=== PATIENT | female | born 1935 | race Caucasian/White ===

== ENCOUNTER 2020-11-20 13:56 | Inpatient (IN) | payer MEDICARE, MEDICAID ==
[~2020-11-20] VITALS: Ht 160 cm; Wt 71.9 kg
[2020-11-20] MEDS ORDERED: ASPIRIN 81MG TABLET PO ONE ×2 (14:15→15:45)
[2020-11-20] MEDS ORDERED: NITROGLYCERIN 0.4MG TABLET SL SL PRN ×2 (14:15→21:30)
[2020-11-20 15:22] LABS: CHLORIDE 111 mEq/L (98-107)
[2020-11-20 15:33] LABS: BASOPHILS % 0.8 % (0.0-2.0); EOSINOPHILS % 1.3 % (0.0-5.0); HEMATOCRIT. 42.1 % (36.0-48.0); LYMPHOCYTES % 12.4 % (20.0-50.0); MEAN CORPUSCULAR HEMOGLOBIN 30.1 pg (28.0-32.0); MEAN CORPUSCULAR VOLUME 90.3 fL (81.0-99.0); MEAN PLATELET VOLUME 10.6 fl (7.4-10.4); MONOCYTES % 4.5 % (2.0-8.0); PLATELET 228 x1000/uL (130-400); RED BLOOD CELL COUNT 4.66 mill/uL (4.2-5.4); RED CELL DISTRIBUTION WIDTH 15.2 % (11.6-14.6)
[2020-11-20 15:35] LABS: D-DIMER 1.56 mg/L FEU (<0.50); PARTIAL THROMBOPLASTIN TIME 24.2 sec (23.4-31.0); PROTHROMBIN TIME 10.3 sec (9.6-11.0)
[2020-11-20] MEDS ORDERED: HEPARIN 5000 UNITS/ML VIAL IV ONE (15:45)
[2020-11-20] MEDS ORDERED: MORPHINE SULFATE 2 MG/ML CPJ (NOT FOR IM USE) IV PRN (17:00)
[2020-11-20] MEDS ORDERED: LORAZEPAM 2MG/ML CPJ IV PRN (17:00)
[2020-11-20] MEDS ORDERED: HYDRALAZINE 20MG/ML VIAL IV PRN (17:00)
[2020-11-20] MEDS ORDERED: DIPHENHYDRAMINE 50MG/ML VIAL IV PRN (17:00)
[2020-11-20] MEDS ORDERED: ALBUTEROL 6.7GM HFA INHALER ORI NR (17:00)
[2020-11-20] MEDS: SODIUM CHLORIDE 0.45% 1,000 ML IV SCH ×2 (17:00→23:56)
[2020-11-20] MEDS ORDERED: ALBUTEROL 6.7GM HFA INHALER ORI PRN (17:00)
[2020-11-20] MEDS ORDERED: SODIUM BICARBONATE 8.4% 1 MEQ/ML 50ML SYR IV NR (17:00)
[2020-11-20] MEDS ORDERED: DEXTROSE 50% WATER 50ML SYRINGE IV PRN (17:00)
[2020-11-20] MEDS: FAMOTIDINE 20MG/2ML VIAL IV SCH (17:00)
[2020-11-20] MEDS ORDERED: DEXTROSE 50% WATER 50ML SYRINGE IV NR (17:00)
[2020-11-20] MEDS ORDERED: ONDANSETRON HCL 4MG/2ML INJ IV PRN (17:00)
[2020-11-20] MEDS ORDERED: INSULIN REGULAR (HUMULIN R) 300UNITS/3ML VIAL IV NR (17:00)
[2020-11-20] MEDS ORDERED: BLOOD SUGAR DIAGNOSTIC STRIP TEST SCH (17:00)
[2020-11-20] MEDS ORDERED: CALCIUM GLUCONATE 1GM PREMIX 50 ML IV SCH (17:00)
[2020-11-20] MEDS ORDERED: MIDAZOLAM HCL 2 MG/2 ML VIAL ONE (17:53)
[2020-11-20] MEDS ORDERED: FENTANYL CITRATE/PF 50MCG/ML 2ML VIAL ONE (17:54)
[2020-11-20] MEDS ORDERED: FUROSEMIDE 40MG/4ML VIAL ONE (17:54)
[2020-11-20] MEDS ORDERED: LIDOCAINE HCL 1% 20ML VIAL (Pyxis) INJ ONE (17:54)
[2020-11-20] MEDS ORDERED: IODIXANOL 320MG/ML 100 ML BOTTLE IV ONE (17:55)
[2020-11-20 18:30] VITALS: BP 101/56
[2020-11-20] MEDS ORDERED: ATROPINE SULFATE 1MG/10ML SYR IV PRN (18:30)
[2020-11-20] MEDS ORDERED: HEPARIN 25,000 UNITS PREMIX 250 ML IV PRN (18:30)
[2020-11-20] MEDS ORDERED: HEPARIN 5000 UNITS/ML VIAL IV PRN ×2 (18:30)
[2020-11-20 20:04] VITALS: BP 107/65
[2020-11-20] MEDS: METOPROLOL TARTRATE 25MG TABLET PO SCH (21:00)
[2020-11-20] MEDS: INSULIN LISPRO 100 UNITS/ML SUBCUT SCH (21:00)
[2020-11-20] MEDS ORDERED: DIPHENHYDRAMINE 25MG CAPSULE PO PRN (21:00)
[2020-11-20] MEDS ORDERED: ACETAMINOPHEN 325MG TABLET PO PRN (21:30)
[2020-11-20] MEDS ORDERED: DOCUSATE SODIUM 100MG CAPSULE PO SCH (21:30)
[2020-11-20] MEDS ORDERED: ASCORBIC ACID 500 MG TABLET PO SCH (21:30)
[2020-11-20] MEDS ORDERED: BISACODYL 10MG SUPP PR PRN (21:30)
[2020-11-20 21:33] LABS: PROTHROMBIN TIME 10.3 sec (9.6-11.0)
[2020-11-20 21:36] LABS: BG CARBOXYHEMOGLOBIN 0.5 % (0.5-1.5); BG DEOXYHEMOGLOBIN 4.7 % (0.0-5.0); BG FRACTION INSPIRED OXYGEN 21; BG HCO3 ACT 20.2 mmol/L (22.0-26.0); BG METHEMOGLOBIN 0.1 % (0.0-1.5); BG OXYGEN SATURATION 95.3 % (92.0-98.5); BG OXYHEMOGLOBIN 94.7 % (94.0-97.0); BG PCO2 34.3 mmHg (35.0-45.0); BG PH 7.387 (7.350-7.450); BG PO2 77.9 mmHg (75.0-100.0); BG SAMPLE SITE LEFT RADIAL; BG TOTAL HEMOGLOBIN 13.8 g/dL (12.0-18.0); BG VENT MODE ROOM AIR
[2020-11-20] MEDS ORDERED: EPOETIN ALFA-EPBX 10,000 UNIT/ML VIAL SUBCUT NR (22:30)
[2020-11-20] MEDS ORDERED: HEPARIN 5000 UNITS/ML VIAL IV SCH (22:30)
[2020-11-20] MEDS ORDERED: CHLORHEXIDINE GLUCONATE 4% EXTERNAL USE TOP SCH (22:30)
[2020-11-20] MEDS: ATORVASTATIN CALCIUM 40MG TABLET PO SCH (23:27)
[2020-11-20] MEDS: ACETAMINOPHEN 325MG TABLET PO PRN (23:28)
[2020-11-20] MEDS: ALLOPURINOL 300 MG TABLET PO SCH (23:28)
[2020-11-20 23:40] LABS: PARTIAL THROMBOPLASTIN TIME 25.8 sec (23.4-31.0); PROTHROMBIN TIME 10.1 sec (9.6-11.0)
[2020-11-20 23:50] LABS: CHLORIDE 108 mEq/L (98-107)
[2020-11-20 23:54] VITALS: BP 112/72
[2020-11-20 23:59] LABS: CREATINE KINASE 209 IU/L (26-192)
[2020-11-21] VITALS (55 sets, daily range): BP systolic 92–167; BP diastolic 2–79
[2020-11-21 00:01] LABS: CREATINE KINASE MB FRACTION 6.6 ng/mL (0.5-3.6)
[2020-11-21 03:33] LABS: CLARITY URINE CLEAR (CLEAR); COLOR URINE YELLOW (YELLOW); KETONES URINE NEGATIVE (NEGATIVE); LEUKOCYTE ESTERASE URINE NEGATIVE (NEGATIVE); NITRITE URINE NEGATIVE (NEGATIVE); OCCULT BLOOD URINE NEGATIVE (NEGATIVE); PROTEIN URINE NEGATIVE (NEGATIVE); SPECIFIC GRAVITY URINE 1.018 (1.005-1.030); UROBILINOGEN URINE 0.2 E.U./dL (0.2-1.0)
[2020-11-21 03:51] LABS: *AMPHETAMINES SCREEN URINE NEGATIVE (NEGATIVE); *BARBITURATES SCREEN URINE NEGATIVE (NEGATIVE); *BENZODIAZEPINES SCREEN URINE PRESUMTIVE POSITIVE (NEGATIVE); *COCAINE SCREEN URINE NEGATIVE (NEGATIVE); METHADONE URINE SCREEN NEGATIVE (NEGATIVE)
[2020-11-21 03:52] LABS: CANNABINOID URINE SCREEN NEGATIVE (NEGATIVE); OPIATES URINE SCREEN NEGATIVE (NEGATIVE); PHENCYCLIDINE URINE SCREEN NEGATIVE (NEGATIVE)
[2020-11-21] MEDS: ALLOPURINOL 300 MG TABLET PO SCH (05:49)
[2020-11-21] MEDS ORDERED: DOPAMINE 400MG/250ML PREMIX 250 ML IV ONE (05:51)
[2020-11-21] MEDS ORDERED: NICARDIPINE 50 MG in NS 250 ML IV SCH (06:00)
[2020-11-21] MEDS ORDERED: CHLORHEXIDINE GLUCONATE 4% EXTERNAL USE TOP SCH (06:00)
[2020-11-21] MEDS ORDERED: EPINEPHRINE 5 MG in DEXT 5% WATER 245 ML IV SCH (06:00)
[2020-11-21] MEDS ORDERED: DEL NIDO ELECTROLYTE-S(PH 7.4) 1,000 ML IV SCH ×2 (06:00)
[2020-11-21] MEDS ORDERED: PAPAVERINE HCL 180MG in SODIUM CHLORIDE 0.9% 24ML IV SCH (06:00)
[2020-11-21] MEDS ORDERED: AMINOCAPROIC ACID 5,000 MG in SODIUM CHLORIDE 0.9% 230 ML IV SCH (06:00)
[2020-11-21] MEDS ORDERED: CEFAZOLIN 2,000 MG in DEXT 5% WATER 100 ML IV SCH (06:00)
[2020-11-21] MEDS ORDERED: NOREPINEPHRINE 8 MG in DEXT 5% WATER 242 ML IV SCH (06:00)
[2020-11-21] MEDS ORDERED: SKIN ADHESIVE 0.7 GM EA TOP ONE (06:18)
[2020-11-21] MEDS ORDERED: THROMBIN (BOVINE) 5000 UNITS/VIAL TOP ONE ×2 (06:18→06:19)
[2020-11-21] MEDS ORDERED: BACITRACIN 15GM TUBE TOP ONE (06:18)
[2020-11-21] MEDS ORDERED: BACITRACIN 50,000 UNITS/VIAL ONE (06:19)
[2020-11-21] MEDS ORDERED: ACETAMINOPHEN 500MG TABLET ONE (06:22)
[2020-11-21 06:32] LABS: BASOPHILS % 1.2 % (0.0-2.0); EOSINOPHILS % 3.1 % (0.0-5.0); HEMATOCRIT. 39.5 % (36.0-48.0); HEMOGLOBIN. 13.1 g/dL (12.0-16.0); LYMPHOCYTES % 27.6 % (20.0-50.0); MEAN CORPUSCULAR VOLUME 90.4 fL (81.0-99.0); MEAN PLATELET VOLUME 10.8 fl (7.4-10.4); NEUTROPHILS % 62.1 % (40.0-76.0); PLATELET 235 x1000/uL (130-400); RED BLOOD CELL COUNT 4.37 mill/uL (4.2-5.4); RED CELL DISTRIBUTION WIDTH 15.4 % (11.6-14.6)
[2020-11-21 06:39] LABS: CHLORIDE 105 mEq/L (98-107)
[2020-11-21 06:46] LABS: LDL CHOLESTEROL 121 mg/dL (5-100)
[2020-11-21 06:47] LABS: CREATINE KINASE 253 IU/L (26-192)
[2020-11-21 06:48] LABS: HDL CHOLESTEROL 36 mg/dL (40-59); T4 FREE 1.19 ng/dL (0.76-1.46)
[2020-11-21] MEDS ORDERED: FENTANYL CITRATE/PF 50MCG/ML 5ML VIAL ONE (06:59)
[2020-11-21] MEDS ORDERED: ETOMIDATE 2MG/ML 10ML VIAL IV ONE (07:00)
[2020-11-21] MEDS: INSULIN LISPRO 100 UNITS/ML SUBCUT SCH ×4 (07:20→21:00)
[2020-11-21] MEDS ORDERED: PHENYLEPHRINE HCL 10 MG/ML 1ML (IV VIAL) IV ONE ×2 (08:22→10:29)
[2020-11-21] MEDS ORDERED: ONDANSETRON HCL 4MG/2ML INJ ONE (08:22)
[2020-11-21] MEDS ORDERED: ROCURONIUM BROMIDE 10MG/ML VIAL 5ML IV ONE (08:22)
[2020-11-21] MEDS ORDERED: SODIUM CHLORIDE 0.9% 10ML VIAL ONE (08:22)
[2020-11-21] MEDS ORDERED: FUROSEMIDE 100MG/10ML VIAL ONE (08:22)
[2020-11-21] MEDS ORDERED: LABETALOL HCL 5MG/ML VIAL 20ML IV ONE (08:22)
[2020-11-21] MEDS ORDERED: MAGNESIUM SULFATE 5GM/10ML VIAL IV ONE (08:26)
[2020-11-21] MEDS ORDERED: HEPARIN 1000 UNITS/ML 10ML ONE (08:54)
[2020-11-21] MEDS: METOPROLOL TARTRATE 25MG TABLET PO SCH ×2 (09:00→21:00)
[2020-11-21] MEDS ORDERED: ASPIRIN 81MG EC TABLET PO SCH (09:00)
[2020-11-21] MEDS: SODIUM CHLORIDE 0.45% 1,000 ML IV SCH (09:40)
[2020-11-21] MEDS ORDERED: CALCIUM CHLORIDE 1GM/10ML SYR IV ONE (09:51)
[2020-11-21] MEDS ORDERED: PROTAMINE SULFATE 10MG/ML VIAL 25ML IV ONE (09:58)
[2020-11-21] MEDS ORDERED: NITROGLYCERIN 50MG PREMIX 250 ML IV ONE (10:12)
[2020-11-21] MEDS ORDERED: SODIUM BICARBONATE 8.4% 1 MEQ/ML 50ML SYR IV ONE ×3 (10:12→11:12)
[2020-11-21] MEDS ORDERED: DEXAMETHASONE 4MG/ML 1ML VIAL ONE (10:30)
[2020-11-21] MEDS ORDERED: NEOSTIGMINE METHYLSULFATE 1MG/ML 10 ML VIAL ONE (10:31)
[2020-11-21] MEDS: IPRATROPIUM/ALBUTEROL 0.5-3(2.5)MG/3ML NEB HHN SCH ×2 (10:32→15:55)
[2020-11-21] MEDS ORDERED: KETOROLAC 30MG/ML VIAL ONE (10:35)
[2020-11-21] MEDS ORDERED: HYDROMORPHONE HCL/PF 2MG/ML (OR) ONE (10:45)
[2020-11-21] MEDS ORDERED: ALBUMIN HUMAN 25GM/100ML (25%) IV ONE (10:45)
[2020-11-21] MEDS ORDERED: CALCIUM CHLORIDE 3,000 MG in DEXT 5% WATER 250 ML IV PRN (11:00)
[2020-11-21] MEDS ORDERED: MAGNESIUM 1 G PREMIX 100 ML IV PRN (11:00)
[2020-11-21] MEDS ORDERED: KETOROLAC 30MG/ML VIAL IV PRN (11:00)
[2020-11-21] MEDS ORDERED: ALBUMIN HUMAN 12.5G/250ML (5%) IV PRN (11:00)
[2020-11-21] MEDS ORDERED: SODIUM CHLORIDE 0.9% 500 ML IV PRN (11:00)
[2020-11-21] MEDS ORDERED: MAGNESIUM SULFATE 3 GM in DEXT 5% WATER 100 ML IV PRN (11:00)
[2020-11-21] MEDS ORDERED: OXYCODONE HCL/ACETAMINOPHEN 5/325MG TABLET PO PRN (11:00)
[2020-11-21] MEDS ORDERED: ACETAMINOPHEN 325MG TABLET PO PRN (11:00)
[2020-11-21] MEDS ORDERED: MORPHINE SULFATE 2 MG/ML CPJ (NOT FOR IM USE) IV PRN (11:00)
[2020-11-21 11:59] LABS: BG BASE EXCESS -3.4 mmol/L (-2.0-2.0); BG CARBOXYHEMOGLOBIN 0.3 % (0.5-1.5); BG DEOXYHEMOGLOBIN 4.1 % (0.0-5.0); BG FRACTION INSPIRED OXYGEN 100; BG HCO3 ACT 21.8 mmol/L (22.0-26.0); BG METHEMOGLOBIN 0.2 % (0.0-1.5); BG OXYGEN SATURATION 95.9 % (92.0-98.5); BG OXYHEMOGLOBIN 95.4 % (94.0-97.0); BG PCO2 39.8 mmHg (35.0-45.0); BG PH 7.356 (7.350-7.450); BG PO2 88.5 mmHg (75.0-100.0); BG SAMPLE SITE ALINE; BG TOTAL HEMOGLOBIN 10.6 g/dL (12.0-18.0); BG TOTAL RESPIRATORY RATE 20 b/min; BG VENT MODE VENT - CPAP
[2020-11-21 12:08] LABS: BASOPHILS % 0.5 % (0.0-2.0); EOSINOPHILS % 0.1 % (0.0-5.0); HEMATOCRIT. 29.1 % (36.0-48.0); HEMOGLOBIN. 9.7 g/dL (12.0-16.0); LYMPHOCYTES % 8.1 % (20.0-50.0); MEAN CORPUSCULAR HEMOGLOBIN 30.1 pg (28.0-32.0); MEAN CORPUSCULAR VOLUME 90.1 fL (81.0-99.0); MEAN PLATELET VOLUME 10.7 fl (7.4-10.4); MONOCYTES % 3.4 % (2.0-8.0); NEUTROPHILS % 87.9 % (40.0-76.0); PLATELET 222 x1000/uL (130-400); RED BLOOD CELL COUNT 3.23 mill/uL (4.2-5.4); RED CELL DISTRIBUTION WIDTH 14.9 % (11.6-14.6)
[2020-11-21 12:31] LABS: INR 1.1; PROTHROMBIN TIME 11.3 sec (9.6-11.0)
[2020-11-21] MEDS: ALBUMIN HUMAN 25GM/100ML (25%) IV PRN (12:34)
[2020-11-21] MEDS: KCL 10MEQ/50ML PREMIX 200 ML IV PRN (12:38)
[2020-11-21] MEDS: INSULIN REGULAR (DRIP) 100 UNITS in SODIUM CHLORIDE 0.9% 99 ML IV SCH ×2 (12:40→16:11)
[2020-11-21] MEDS: DOPAMINE 400MG/250ML PREMIX 250 ML IV SCH (12:41)
[2020-11-21] MEDS ORDERED: KCL 10MEQ/50ML PREMIX 150 ML IV PRN (12:45)
[2020-11-21] MEDS ORDERED: KCL 10MEQ/50ML PREMIX 100 ML IV PRN (12:45)
[2020-11-21 13:44] LABS: BG CARBOXYHEMOGLOBIN 0.3 % (0.5-1.5); BG DEOXYHEMOGLOBIN 1.5 % (0.0-5.0); BG FRACTION INSPIRED OXYGEN 100; BG HCO3 ACT 23.5 mmol/L (22.0-26.0); BG METHEMOGLOBIN 0.1 % (0.0-1.5); BG OXYGEN SATURATION 98.5 % (92.0-98.5); BG OXYHEMOGLOBIN 98.1 % (94.0-97.0); BG PCO2 43.1 mmHg (35.0-45.0); BG PH 7.354 (7.350-7.450); BG PO2 233.2 mmHg (75.0-100.0); BG SAMPLE SITE ALINE; BG TOTAL HEMOGLOBIN 9.7 g/dL (12.0-18.0); BG TOTAL RESPIRATORY RATE 14 b/min; BG VENT MODE VENT - CPAP
[2020-11-21] MEDS ORDERED: FUROSEMIDE 40MG/4ML VIAL IVP SCH (13:45)
[2020-11-21] MEDS ORDERED: FUROSEMIDE 40MG/4ML VIAL ONE (13:53)
[2020-11-21] MEDS ORDERED: BLOOD SUGAR DIAGNOSTIC STRIP TEST SCH (14:00)
[2020-11-21] MEDS ORDERED: DEXTROSE 50% WATER 50ML SYRINGE IV PRN ×2 (14:00)
[2020-11-21] MEDS: BLOOD SUGAR DIAGNOSTIC STRIP TEST SCH ×10 (14:00→23:00)
[2020-11-21] MEDS: FAMOTIDINE 20MG/2ML VIAL IV SCH (14:01)
[2020-11-21] MEDS: DEXT 5%/0.45% NACL 1000ML 1,000 ML IV SCH (14:40)
[2020-11-21] MEDS: CLOPIDOGREL 75MG TABLET PO SCH (16:40)
[2020-11-21] MEDS: DOCUSATE SODIUM 100MG CAPSULE PO SCH (16:40)
[2020-11-21] MEDS: ASPIRIN 81MG TABLET PO SCH (16:41)
[2020-11-21] MEDS: BACITRACIN 15GM TUBE TOP SCH (17:00)
[2020-11-21 17:40] LABS: BG CARBOXYHEMOGLOBIN 0.3 % (0.5-1.5); BG DEOXYHEMOGLOBIN 2.8 % (0.0-5.0); BG HCO3 ACT 26.4 mmol/L (22.0-26.0); BG METHEMOGLOBIN 0.3 % (0.0-1.5); BG OXYGEN SATURATION 97.2 % (92.0-98.5); BG OXYHEMOGLOBIN 96.6 % (94.0-97.0); BG PCO2 40.2 mmHg (35.0-45.0); BG PH 7.435 (7.350-7.450); BG PO2 104.4 mmHg (75.0-100.0); BG TOTAL HEMOGLOBIN 10.4 g/dL (12.0-18.0); BG VENT MODE MASK - SIMPLE
[2020-11-21 17:47] LABS: HEMATOCRIT. 28.7 % (36.0-48.0); HEMOGLOBIN. 9.7 g/dL (12.0-16.0); MEAN CORPUSCULAR HEMOGLOBIN 29.8 pg (28.0-32.0); MEAN CORPUSCULAR VOLUME 88.7 fL (81.0-99.0); MEAN PLATELET VOLUME 10.2 fl (7.4-10.4); PLATELET 177 x1000/uL (130-400); RED BLOOD CELL COUNT 3.24 mill/uL (4.2-5.4); RED CELL DISTRIBUTION WIDTH 14.6 % (11.6-14.6)
[2020-11-21 18:21] LABS: PLATELET ESTIMATE NORMAL
[2020-11-21] MEDS ORDERED: MAGNESIUM 2 G PREMIX 50 ML IV SCH (18:45)
[2020-11-21] MEDS ORDERED: ALBUMIN HUMAN 25GM/100ML (25%) IV NR (18:45)
[2020-11-21] MEDS ORDERED: INSULIN REGULAR (DRIP) 100 UNITS in SODIUM CHLORIDE 0.9% 99 ML IV SCH (20:45)
[2020-11-21] MEDS: ATORVASTATIN CALCIUM 40MG TABLET PO SCH (21:25)
[2020-11-21] MEDS: INSULIN REGULAR (DRIP) 100 UNITS in SODIUM CHLORIDE 0.9% 100 ML IV SCH (23:14)
[2020-11-22] VITALS (106 sets, daily range): BP systolic 68–135; BP diastolic 3–75
[2020-11-22] MEDS: BLOOD SUGAR DIAGNOSTIC STRIP TEST SCH ×24 (01:00→23:00)
[2020-11-22] MEDS ORDERED: ALBUMIN HUMAN 25GM/100ML (25%) IV SCH ×3 (02:00→06:00)
[2020-11-22] MEDS ORDERED: FUROSEMIDE 40MG/4ML VIAL IVP SCH ×2 (02:15→06:00)
[2020-11-22] MEDS: DEXT 5%/0.45% NACL 1000ML 1,000 ML IV SCH ×2 (03:41→23:57)
[2020-11-22] MEDS: EPINEPHRINE 5 MG in DEXT 5% WATER 245 ML IV SCH ×2 (04:16→16:51)
[2020-11-22 04:59] LABS: BASOPHILS % 0.4 % (0.0-2.0); HEMATOCRIT. 28.4 % (36.0-48.0); HEMOGLOBIN. 9.6 g/dL (12.0-16.0); LYMPHOCYTES % 8.9 % (20.0-50.0); MEAN CORPUSCULAR VOLUME 88.9 fL (81.0-99.0); MEAN PLATELET VOLUME 10.7 fl (7.4-10.4); MONOCYTES % 8.8 % (2.0-8.0); NEUTROPHILS % 81.9 % (40.0-76.0); PLATELET 223 x1000/uL (130-400); RED CELL DISTRIBUTION WIDTH 14.8 % (11.6-14.6)
[2020-11-22] MEDS: ACETAMINOPHEN 325MG TABLET PO PRN (06:38)
[2020-11-22] MEDS: FAMOTIDINE 20MG/2ML VIAL IV SCH (08:43)
[2020-11-22] MEDS: DOCUSATE SODIUM 100MG CAPSULE PO SCH ×2 (08:43→17:49)
[2020-11-22] MEDS: ASPIRIN 81MG TABLET PO SCH (08:43)
[2020-11-22] MEDS: CLOPIDOGREL 75MG TABLET PO SCH (08:43)
[2020-11-22] MEDS: METOPROLOL TARTRATE 25MG TABLET PO SCH ×2 (08:44→20:55)
[2020-11-22] MEDS: BACITRACIN 15GM TUBE TOP SCH ×2 (08:44→18:00)
[2020-11-22] MEDS: MAGNESIUM 2 G PREMIX 50 ML IV PRN (09:37)
[2020-11-22] MEDS: DOPAMINE 400MG/250ML PREMIX 250 ML IV SCH (09:38)
[2020-11-22] MEDS: IPRATROPIUM/ALBUTEROL 0.5-3(2.5)MG/3ML NEB HHN SCH ×4 (10:32→21:38)
[2020-11-22] MEDS: INSULIN REGULAR (DRIP) 100 UNITS in SODIUM CHLORIDE 0.9% 100 ML IV SCH (13:10)
[2020-11-22] MEDS: ATORVASTATIN CALCIUM 40MG TABLET PO SCH (21:26)
[2020-11-23] VITALS (108 sets, daily range): BP systolic 58–177; BP diastolic 23–114
[2020-11-23] MEDS: BLOOD SUGAR DIAGNOSTIC STRIP TEST SCH ×17 (01:00→20:17)
[2020-11-23] MEDS: INSULIN REGULAR (DRIP) 100 UNITS in SODIUM CHLORIDE 0.9% 100 ML IV SCH ×2 (01:52→13:51)
[2020-11-23] MEDS: IPRATROPIUM/ALBUTEROL 0.5-3(2.5)MG/3ML NEB HHN SCH ×4 (03:19→23:17)
[2020-11-23] MEDS: OXYCODONE HCL/ACETAMINOPHEN 5/325MG TABLET PO PRN (05:09)
[2020-11-23 05:59] LABS: BASOPHILS % 0.3 % (0.0-2.0); EOSINOPHILS % 1.8 % (0.0-5.0); HEMATOCRIT. 27.7 % (36.0-48.0); HEMOGLOBIN. 9.3 g/dL (12.0-16.0); LYMPHOCYTES % 10.6 % (20.0-50.0); MEAN CORPUSCULAR HEMOGLOBIN 30.2 pg (28.0-32.0); MEAN CORPUSCULAR VOLUME 90.5 fL (81.0-99.0); MEAN PLATELET VOLUME 10.7 fl (7.4-10.4); MONOCYTES % 5.3 % (2.0-8.0); PLATELET 198 x1000/uL (130-400); RED BLOOD CELL COUNT 3.06 mill/uL (4.2-5.4); RED CELL DISTRIBUTION WIDTH 14.7 % (11.6-14.6)
[2020-11-23] MEDS ORDERED: KCL 20MEQ/100ML PREMIX 100 ML IV SCH (08:00)
[2020-11-23] MEDS: METOPROLOL TARTRATE 25MG TABLET PO SCH ×2 (09:00→20:17)
[2020-11-23] MEDS: ALBUMIN HUMAN 25GM/100ML (25%) IV PRN (09:03)
[2020-11-23] MEDS: MAGNESIUM 2 G PREMIX 50 ML IV PRN (09:03)
[2020-11-23] MEDS: ASPIRIN 81MG TABLET PO SCH (09:03)
[2020-11-23] MEDS: DOCUSATE SODIUM 100MG CAPSULE PO SCH ×2 (09:03→17:24)
[2020-11-23] MEDS: FAMOTIDINE 20MG/2ML VIAL IV SCH (09:05)
[2020-11-23] MEDS: MIDODRINE HCL 5MG TABLET PO SCH ×3 (09:05→17:21)
[2020-11-23] MEDS: CLOPIDOGREL 75MG TABLET PO SCH (09:25)
[2020-11-23] MEDS: BACITRACIN 15GM TUBE TOP SCH ×2 (10:00→17:22)
[2020-11-23] MEDS ORDERED: ALBUMIN HUMAN 25GM/100ML (25%) IV SCH (10:45)
[2020-11-23] MEDS ORDERED: DEXTROSE 50% WATER 50ML SYRINGE IV PRN (14:30)
[2020-11-23] MEDS: ONDANSETRON HCL 4MG/2ML INJ IV PRN (14:33)
[2020-11-23] MEDS: INSULIN LISPRO 100 UNITS/ML SUBCUT SCH ×2 (17:35→20:20)
[2020-11-23] MEDS: DOPAMINE 400MG/250ML PREMIX 250 ML IV SCH (17:49)
[2020-11-23] MEDS: ATORVASTATIN CALCIUM 40MG TABLET PO SCH (20:20)
[2020-11-24] VITALS (48 sets, daily range): BP systolic 58–157; BP diastolic 28–102
[2020-11-24] MEDS: ONDANSETRON HCL 4MG/2ML INJ IV PRN ×2 (03:42→09:14)
[2020-11-24] MEDS: IPRATROPIUM/ALBUTEROL 0.5-3(2.5)MG/3ML NEB HHN SCH (04:43)
[2020-11-24] MEDS: KCL 10MEQ/50ML PREMIX 200 ML IV PRN (05:21)
[2020-11-24 05:43] LABS: BASOPHILS % 0.1 % (0.0-2.0); EOSINOPHILS % 3.4 % (0.0-5.0); HEMATOCRIT. 23.3 % (36.0-48.0); HEMOGLOBIN. 7.8 g/dL (12.0-16.0); LYMPHOCYTES % 8.6 % (20.0-50.0); MEAN CORPUSCULAR HEMOGLOBIN 30.6 pg (28.0-32.0); MEAN CORPUSCULAR VOLUME 90.9 fL (81.0-99.0); MEAN PLATELET VOLUME 10.4 fl (7.4-10.4); MONOCYTES % 6.3 % (2.0-8.0); NEUTROPHILS % 81.6 % (40.0-76.0); PLATELET 178 x1000/uL (130-400); RED BLOOD CELL COUNT 2.56 mill/uL (4.2-5.4); RED CELL DISTRIBUTION WIDTH 14.9 % (11.6-14.6)
[2020-11-24 06:49] LABS: BASOPHILS % 0.3 % (0.0-2.0); EOSINOPHILS % 3.2 % (0.0-5.0); HEMATOCRIT. 25.7 % (36.0-48.0); HEMOGLOBIN. 8.6 g/dL (12.0-16.0); LYMPHOCYTES % 9.4 % (20.0-50.0); MEAN CORPUSCULAR HEMOGLOBIN 30.4 pg (28.0-32.0); MEAN CORPUSCULAR VOLUME 90.8 fL (81.0-99.0); MEAN PLATELET VOLUME 10.4 fl (7.4-10.4); MONOCYTES % 5.1 % (2.0-8.0); PLATELET 193 x1000/uL (130-400); RED BLOOD CELL COUNT 2.83 mill/uL (4.2-5.4); RED CELL DISTRIBUTION WIDTH 14.8 % (11.6-14.6)
[2020-11-24] MEDS: BLOOD SUGAR DIAGNOSTIC STRIP TEST SCH ×4 (07:30→21:00)
[2020-11-24] MEDS: ASPIRIN 81MG TABLET PO SCH (08:34)
[2020-11-24] MEDS: DOCUSATE SODIUM 100MG CAPSULE PO SCH ×2 (08:34→17:34)
[2020-11-24] MEDS: CLOPIDOGREL 75MG TABLET PO SCH (08:34)
[2020-11-24] MEDS: FAMOTIDINE 20MG/2ML VIAL IV SCH (08:34)
[2020-11-24] MEDS: OXYCODONE HCL/ACETAMINOPHEN 5/325MG TABLET PO PRN (08:35)
[2020-11-24] MEDS: METOPROLOL TARTRATE 25MG TABLET PO SCH ×2 (08:35→22:42)
[2020-11-24] MEDS: INSULIN LISPRO 100 UNITS/ML SUBCUT SCH ×4 (08:36→23:45)
[2020-11-24] MEDS: BACITRACIN 15GM TUBE TOP SCH ×2 (08:37→17:36)
[2020-11-24] MEDS: MIDODRINE HCL 5MG TABLET PO SCH ×4 (09:00→17:35)
[2020-11-24 10:33] LABS: BG CARBOXYHEMOGLOBIN 0.4 % (0.5-1.5); BG DEOXYHEMOGLOBIN 5.6 % (0.0-5.0); BG FRACTION INSPIRED OXYGEN 21; BG HCO3 ACT 18.1 mmol/L (22.0-26.0); BG METHEMOGLOBIN 0.3 % (0.0-1.5); BG OXYGEN SATURATION 94.4 % (92.0-98.5); BG OXYHEMOGLOBIN 93.7 % (94.0-97.0); BG PH 7.445 (7.350-7.450); BG PO2 71.4 mmHg (75.0-100.0); BG SAMPLE SITE ALINE; BG TOTAL HEMOGLOBIN 9.2 g/dL (12.0-18.0); BG VENT MODE ROOM AIR
[2020-11-24] MEDS ORDERED: FUROSEMIDE 40MG/4ML VIAL IVP SCH (11:15)
[2020-11-24] MEDS ORDERED: EPOETIN ALFA-EPBX 10,000 UNIT/ML VIAL SUBCUT SCH (21:00)
[2020-11-24] MEDS ORDERED: HALOPERIDOL LACTATE 5MG/ML VIAL IM NR (22:30)
[2020-11-24] MEDS: MINERAL OIL 30ML BOTTLE PO SCH ×2 (22:41→22:53)
[2020-11-24] MEDS: ATORVASTATIN CALCIUM 40MG TABLET PO SCH (22:41)
[2020-11-25] MEDS: OXYCODONE HCL/ACETAMINOPHEN 5/325MG TABLET PO PRN (03:13)
[2020-11-25 05:40] VITALS: BP 127/73
[2020-11-25] MEDS: BLOOD SUGAR DIAGNOSTIC STRIP TEST SCH ×2 (06:25→11:25)
[2020-11-25] MEDS: INSULIN LISPRO 100 UNITS/ML SUBCUT SCH ×2 (08:20→12:46)
[2020-11-25] MEDS: FAMOTIDINE 20MG/2ML VIAL IV SCH (08:21)
[2020-11-25] MEDS: DOCUSATE SODIUM 100MG CAPSULE PO SCH (08:21)
[2020-11-25] MEDS: MIDODRINE HCL 5MG TABLET PO SCH (08:21)
[2020-11-25] MEDS: CLOPIDOGREL 75MG TABLET PO SCH (08:21)
[2020-11-25] MEDS: ASPIRIN 81MG TABLET PO SCH (08:21)
[2020-11-25] MEDS: METOPROLOL TARTRATE 25MG TABLET PO SCH (08:22)
[2020-11-25] MEDS: BACITRACIN 15GM TUBE TOP SCH (08:23)
[2020-11-25 12:00] VITALS: BP 148/77
[2020-11-25] MEDS ORDERED: MIDODRINE HCL 5MG TABLET PO SCH (12:33)
[2020-11-25] MEDS ORDERED: METO25TA6 PO (14:07)
[2020-11-25] MEDS ORDERED: ASPI-1497 MT (14:07)
[2020-11-25] MEDS ORDERED: CLOP-31 MT (14:07)
[2020-11-25] MEDS ORDERED: MIDO5TAB4 MT (14:07)
[2020-11-25] MEDS ORDERED: LIP40 MT (14:07)
[2020-11-25 15:01] VITALS: BP 138/74
[2020-11-25] MEDS ORDERED: METOPROLOL TARTRATE 25MG TABLET PO SCH (21:00)
== END 2020-11-25 16:58 | disposition home or self-care (01) | DRG 233 ==
LOC: ER 14:22 → 3WST 15:55 → EDBEDREQSVC 15:57 → EDBEDREQ 15:57 → 5EST 11-21 10:36 → 3WST 11-24 19:06
PROVIDERS: ADMIT Internal Medicine; ATTEND Internal Medicine
PROC: 4A023N7 Measurement of Cardiac Sampling and Pressure, Left Heart, Percutaneous Approach (ICD-10-PCS; 2020-11-20)
PROC: 0212093 Bypass Coronary Artery, Three Arteries from Coronary Artery with Autologous Venous Tissue, Open Approach (ICD-10-PCS; principal; 2020-11-21)
PROC: 02100Z9 Bypass Coronary Artery, One Artery from Left Internal Mammary, Open Approach (ICD-10-PCS; 2020-11-21)
PROC: 06BQ4ZZ Excision of Left Saphenous Vein, Percutaneous Endoscopic Approach (ICD-10-PCS; 2020-11-21)
PROC: B2111ZZ Fluoroscopy of Multiple Coronary Arteries using Low Osmolar Contrast (ICD-10-PCS; 2020-11-21)
DX: I21.19 ST elevation (STEMI) myocardial infarction involving other coronary artery of inferior wall (principal); I50.23 Acute on chronic systolic (congestive) heart failure; N17.9 Acute kidney failure, unspecified; I13.0 Hypertensive heart and chronic kidney disease with heart failure and stage 1 through stage 4 chronic kidney disease, or unspecified chronic kidney disease; F05 Delirium due to known physiological condition; E11.65 Type 2 diabetes mellitus with hyperglycemia; E78.5 Hyperlipidemia, unspecified; E87.5 Hyperkalemia; I11.0 Hypertensive heart disease with heart failure; D64.9 Anemia, unspecified; E11.22 Type 2 diabetes mellitus with diabetic chronic kidney disease; E87.6 Hypokalemia; I25.10 Atherosclerotic heart disease of native coronary artery without angina pectoris; N18.9 Chronic kidney disease, unspecified; Z85.038 Personal history of other malignant neoplasm of large intestine; Z85.42 Personal history of malignant neoplasm of other parts of uterus; Z90.710 Acquired absence of both cervix and uterus; I25.2 Old myocardial infarction; I27.20 Pulmonary hypertension, unspecified; I49.3 Ventricular premature depolarization; Z79.899 Other long term (current) drug therapy; Z20.822 Contact with and (suspected) exposure to COVID-19
CPT/HCPCS: 36415; 36600; 71045; 80048; 80053; 80061; 80305; 81003; 82330; 82375; 82550; 82553; 82805; 82962; 83036; 83735; 83880; 84132; 84439; 84443; 84484; 85025; 85347; 85379; 86850; 86900; 86920; 87426; 93005; 93306; 93458; 93880; 93970; 97110; 97116; 97163; 97166; 97530; 97535; 99291; C1729; C1751; C1758; C1769; C1887; C1893; J0610; J0690; J0885; J1100; J1170; J1200; J1265; J1630; J1644; J1815; J1885; J1940; J2250; J2270; J2370; J2405; J2440; J2710; J2720; J3010; J3475; J3480; J3490; J7050; J7060; L3908; P9041; P9047; Q9967

== ENCOUNTER → 2024-05-09 | Outpatient (CLI) | payer MEDICARE, MEDICAID ==
[~2024-05-09] MED LIST: AMLO10TA80 PO; AMLO5TAB4 PO; ASPI-1497 MT; ASPI-1497 PO; ATOR40TA70 MT; ATOR40TA70 PO; CLOP-31 MT; CLOP-31 PO; COR12 PO; LEVO75TA7 MT; LEVO75TA7 PO; LIP40 MT; LOSA100T33 PO; METF-414 MT; METF-415 PO; METO75TA PO; MIDO5TAB4 MT; NAPR-681 PO; PREG150C PO; SITA100T11 PO
== END | disposition home or self-care (01) ==
LOC: CARD 07:59
PROVIDERS: ATTEND Internal Medicine
DX: I08.2 Rheumatic disorders of both aortic and tricuspid valves (principal); I50.22 Chronic systolic (congestive) heart failure
CPT/HCPCS: 93306

== ENCOUNTER → 2024-06-06 | Day surgery (SDC) | payer MEDICARE, MEDICAID ==
[~2024-06-06] MED LIST changes: +REGADENOSON 0.4 MG/5 ML IV ONE
== END | disposition home or self-care (01) ==
LOC: NM 08:50
PROVIDERS: ATTEND Internal Medicine
DX: I21.4 Non-ST elevation (NSTEMI) myocardial infarction (principal); R07.9 Chest pain, unspecified; I50.22 Chronic systolic (congestive) heart failure; Z79.82 Long term (current) use of aspirin; Z79.84 Long term (current) use of oral hypoglycemic drugs; Z79.899 Other long term (current) drug therapy; Z82.49 Family history of ischemic heart disease and other diseases of the circulatory system; Z83.3 Family history of diabetes mellitus
CPT/HCPCS: 93306; 93017; J2785

== ENCOUNTER → 2025-05-23 | Outpatient (CLI) | payer MEDICARE, MEDICAID ==
[~2025-05-23] MED LIST changes: -AMLO5TAB4 PO; +AMLO5TAB5 PO; -REGADENOSON 0.4 MG/5 ML IV ONE
== END | disposition home or self-care (01) ==
LOC: EDSTATUS 12:20 → CARD 12:21
PROVIDERS: ATTEND Internal Medicine
DX: I08.2 Rheumatic disorders of both aortic and tricuspid valves (principal); I50.22 Chronic systolic (congestive) heart failure; I35.0 Nonrheumatic aortic (valve) stenosis
CPT/HCPCS: 93306